=== PATIENT | female | born 1980 | race Two or more races ===

== ENCOUNTER 2021-07-20 19:46 | Emergency (ER) | payer SELFPAY ==
[~2021-07-20] VITALS: Ht 172.7 cm; Wt 111.3 kg
[2021-07-20 20:07] VITALS: BP 133/83
[2021-07-20] MEDS ORDERED: IBUPROFEN 200 MG TABLET. PO ONE (20:30)
[2021-07-20] MEDS ORDERED: IBUPROFEN 400 MG TABLET. PO ONE (20:32)
[2021-07-20] MEDS ORDERED: IBUP-1007 PO (20:34)
--- NOTE | 2021-07-20 20:34 | PHYS DOC ---
Past Medical History Past Surgical History: No Surgical History General Adult EDM: Chief Complaint: PAIN CONTROL HPI: HPI: Patient is a 40-year-old female who presents to the emergency department today for right chronic knee pain. Patient reports that "several years ago" she slid on a dryer sheet and landed on her knee. Patient reports that she has had knee pain ever since and it gets worse when the weather changes. Patient rates her pain 10 out of 10. No treatment prior to arrival. Patient has been able to bear weight and ambulate. She denies any decreased range of motion or decreased sensation to her extremity. Patient states it feels like her knee is trying to pop. Patient reports that she has had previous imaging of her knee that showed no fractures. Review of Systems: Review of Systems: Musculoskeletal: See HPI Integument: See HPI Neurologic: See HPI Heart Score: C/O Chest Pain: N/A Risk Factors: Risk Factors: DM, Current or recent (<one month) smoker, HTN, HLP, family history of CAD, obesity. Risk Scores: Score 0 - 3: 2.5% MACE over next 6 weeks - Discharge Home Score 4 - 6: 20.3% MACE over next 6 weeks - Admit for Clinical Observation Score 7 - 10: 72.7% MACE over next 6 weeks - Early Invasive Strategies Physical Exam: PE: Constitutional: Well developed, well nourished, no acute distress, non-toxic appearance. [] HENT: Normocephalic, atraumatic, bilateral external ears normal, oropharynx moist, no oral exudates, nose normal. [] Eyes: PERRL, EOMI, conjunctiva normal, no discharge. [] Neck: Normal range of motion, no stridor Cardiovascular: Normal peripheral perfusion Lungs & Thorax: Normal work of breathing, no tachypnea Abdomen: Soft and obese Skin: Warm, dry, no erythema, no rash. [] Back: Normal range of motion Extremities: No tenderness, no cyanosis, no clubbing, ROM intact, no edema. [] Right knee: No swelling or obvious deformity, no wounds, no crepitus, neuro intact, range of motion intact, equal strengths to bilateral lower extremities Neurologic: Alert and oriented X 3, normal motor function, normal sensory function, no focal deficits noted. [] Psychologic: Affect normal, judgement normal, mood normal. [] Current Patient Data: Vital Signs: Vital Signs Date Time Temp Pulse Resp B/P (MAP) Pulse Ox O2 Delivery O2 Flow Rate FiO2 07/20/21 20:07 98.0 84 18 133/83 (100) 99 Room Air 98.0 EKG: EKG: [] Radiology/Procedures: Radiology/Procedures: [] Course & Med Decision Making: Course & Med Decision Making Pertinent Labs and Imaging studies reviewed. (See chart for details) [] Patient presents to the emergency department for pain control. Patient is reporting chronic right knee pain that has been going on for several years. Patient reports that she slid on a dryer sheet several years ago and landed onto her knee. Patient reports that she has had imaging of her knee in the past and they were negative for any acute fractures. She denies any new injuries. Patient has not taken anything for her pain today. Patient was treated with ibuprofen in the emergency department. Patient advised to take anti- inflammatory medications and apply ice. I discussed with patient all findings g as well as the need to follow-up with PCP for further evaluation and treatment or return to the ER if any new or worsening symptoms. Strict return precautions were also discussed at length. Patient voiced understanding and agreement with the plan. Patient is hemodynamically stable at the time of disposition. Transporeon Disclaimer: Transporeon Disclaimer: This electronic medical record was generated, in whole or in part, using a voice recognition dictation system. Departure Departure Impression: Primary Impression: Chronic knee pain Qualified Codes: M25.561 - Pain in right knee; G89.29 - Other chronic pain Disposition: HOME / SELF CARE / HOMELESS Condition: GOOD Patient Instructions: Knee Pain Additional Instructions: You were seen in the emergency department today for chronic right knee pain. Please take medications like tylenol, ibuprofen for pain. Also apply ice. Fo llow-up with your primary care provider on Friday regarding your ER visit. See clinic list. Return to the emergency department if you develop any new injuries, inability to walk, decreased range of motion or decreased sensation in your extremity. EMERGENCY DEPARTMENT GENERAL DISCHARGE INSTRUCTIONS Thank you for coming to [facility] Emergency Department (ED) today and trusting us with you care. We trust that you had a positive experience in our Emergency Department. If you wish to speak to the department management, you may call the Director at [phone]. YOUR FOLLOW UP INSTRUCTIONS ARE FOLLOWS: 1. Do you have a private Doctor? If you do not have a private doctor, please ask for a resource list of physicians or clinics that may be able to assist you with follow up care. 2. The Emergency Physicain has interpreted your x-rays. The X-Ray specialist will also review them. If there is a change in the findings, you will be notified in 48 hours when at all possible. 3. A lab test or culture has been done, your results will be reviewed and you will be notified if you need a change in treatment. ADDITIONAL INSTRUCTIONS AND INFORMATION: 1. Your care today has been supervised by a physician who is specially trained in emergency care. Many problems require more than one evaluation for a complete diagnosis and treatment. We recommend that you schedule your follow up appointment as recommended to ensure complete treatment of you illness or injury. If you are unable to obtain follow up care and continue to have a problem, or if your condition worsens, we recommend that you return to the ED. 2. We are not able to safely determine your condition over the phone nor are we able to give sound medical advice over the phone. For these safety reasons, if you call for medical advice we will ask you to come to the ED for further evaluation. 3. If you have any questions regarding these discharge instructions please call the ED at [phone]. SAFETY INFORMATION: In the interest of safety, wellness, and injury prevention; we encourage you to wear your sealbelt, if you smoke; quite smoking, and we encourage family to use a protective helmet for bicycling and other sporting events that present an increased risk for head injury. IF YOUR SYMPTOMS WORSEN OR NEW SYMPTOMS DEVELOP, OR YOU HAVE CONCERNS ABOUT YOUR CONDITION; OR IF YOUR CONDITION WORSENS WHILE YOU ARE WAITING FOR YOUR FOLLOW UP APPOINTMENT; EITHER CONTACT YOUR PRIMARY CARE DOCTOR, THE PHYSICIAN WHOSE NAME AND NUMBER YOU WERE GIVEN, OR RETURN TO THE ED IMMEDIATELY. Scripts Ibuprofen (IBUPROFEN) 600 Mg Tablet 600 MG PO PRN Q6HRS PRN for INFLAMMATION for 5 Days, #20 TAB 0 Refills Prov: MIHAI VALADEZ APRN 07/20/21 MIHAI VALADEZ APRN Jul 20, 2021 20:34
== END 2021-07-20 20:41 | disposition home or self-care (01) ==
LOC: ER 19:46
DX: M25.561 Pain in right knee (principal); G89.29 Other chronic pain
CPT/HCPCS: 99282

== ENCOUNTER 2021-07-28 16:30 | Emergency (ER) | payer SELFPAY ==
[~2021-07-28] VITALS: Ht 172.7 cm; Wt 99.0 kg
[~2021-07-28 16:30] MED LIST: IBUP-1007 PO
[2021-07-28 16:40] VITALS: BP 120/57
--- NOTE | 2021-07-28 16:56 | PHYS DOC ---
Past Medical History Past Surgical History: , Tonsillectomy, Other Additional Past Surgical Histo: RIGHT ANKLE Smoking Status: Former Smoker Alcohol Use: None General Adult EDM: Chief Complaint: KNEE INJURY HPI: HPI: Patient is a 40 year old female patient presented to the ED today complaining of moderate pain to the right knee that began today after she twisted her knee. Patient denies falling. States pain is worse on ambulation. She states she was diagnosed with a Duenas's cyst behind her right knee, she states she would like it drained. Review of Systems: Review of Systems: Constitutional: Denies fever or chills. [] Musculoskeletal: Reports right knee pqin Integument: Denies rash. [] Neurologic: Denies headache, focal weakness or sensory changes. [] Psychiatric: Denies depression or anxiety. [] Heart Score: C/O Chest Pain: N/A Risk Factors: Risk Factors: DM, Current or recent (<one month) smoker, HTN, HLP, family history of CAD, obesity. Risk Scores: Score 0 - 3: 2.5% MACE over next 6 weeks - Discharge Home Score 4 - 6: 20.3% MACE over next 6 weeks - Admit for Clinical Observation Score 7 - 10: 72.7% MACE over next 6 weeks - Early Invasive Strategies Allergies: Allergies: Allergies Coded Allergies Type Severity Reaction Last Updated Verified Penicillins Allergy Intermediate Rash 07/20/21 Yes Physical Exam: PE: Constitutional: Well developed, well nourished, no acute distress, non-toxic appearance. [] Skin: Warm, dry, no erythema, no rash. [] Back: No tenderness, no CVA tenderness. [] Extremities: Overweight patient. Right knee with no obvious deformity. No tenderness on exam. Limited range of motion to the right knee most of it due to her weight. +2 right pedal pulse. Cap refill less than 2 seconds to right lower extremity. Sensation intact to the right lower extremity Neurologic: Alert and oriented X 3, normal motor function, normal sensory function, no focal deficits noted. [] Psychologic: Affect normal, judgement normal, mood normal. [] Current Patient Data: Vital Signs: Vital Signs Date Time Temp Pulse Resp B/P (MAP) Pulse Ox O2 Delivery O2 Flow Rate FiO2 07/28/21 16:40 97.8 74 21 120/57 (78) 97 Room Air 97.8 EKG: EKG: [] Radiology/Procedures: Radiology/Procedures: []PROCEDURE: KNEE RIGHT 3V XR KNEE 3 VIEWS_RT Clinical Indication: Reason: pain twisted knee / Spl. Instructions: / History: Comparison: None. Findings: There is no acute fracture. The patella is in anatomic position. There is no large joint effusion. No soft tissue swelling is seen radiographically. There are marginal osteophytes. There is a tiny patellar enthesophyte. The mineralization is normal. There is mild narrowing of the lateral compartment. IMPRESSION: No acute fracture. Electronically signed by: Link Back MD (07/28/2021 5:15 PM) [facility] DICTATED and SIGNED BY: LINK BACK MD DATE: 07/28/21 [id number] 0 Course & Med Decision Making: Course & Med Decision Making Pertinent Labs and Imaging studies reviewed. (See chart for details) This a 40-year-old female patient presented to the ED today complaining of right knee pain. Right knee x-rays interpreted by radiologist are negative for any acute findings, discharged home. Frandy wrap recommended to the knee. Ice elevation encouraged. Follow-up with orthopedic doctor in 1 week as needed Bess Disclaimer: Bess Disclaimer: This electronic medical record was generated, in whole or in part, using a voice recognition dictation system. Departure Departure Impression: Primary Impression: Right knee pain Qualified Codes: M25.561 - Pain in right knee Disposition: HOME / SELF CARE / HOMELESS Condition: STABLE Referrals: ANGELO HERRON MD follow up in one week Patient Instructions: Knee Pain, [id number] Additional Instructions: You were seen for right knee pain, your right knee x-rays are negative for any acute findings/no fractures. You can wrap the knee with an Frandy bandage as tolerated and needed. Try to ice and elevate the knee. Take the prescribed medications as ordered. Follow-up with orthopedic doctor provided in 1 to 2 weeks. Take over the counter medicines as needed for your pain SHAMEKA VARGAS APRN Jul 28, 2021 16:55
--- NOTE | 2021-07-28 17:18 | RAD ---
XR KNEE 3 VIEWS_RT Clinical Indication: Reason: pain twisted knee / Spl. Instructions: / History: Comparison: None. Findings: There is no acute fracture. The patella is in anatomic position. There is no large joint effusion. No soft tissue swelling is seen radiographically. There are marginal osteophytes. There is a tiny roman lar enthesophyte. The mineralization is normal. There is mild narrowing of the lateral compartment. IMPRESSION: No acute fracture. Electronically signed by: Link Back MD (07/28/2021 5:15 PM) KRISTOFERFIDELIA
== END 2021-07-28 17:28 | disposition home or self-care (01) ==
LOC: ER 16:30
DX: M25.561 Pain in right knee (principal); Z87.891 Personal history of nicotine dependence; Z88.0 Allergy status to penicillin; X50.9XXA Other and unspecified overexertion or strenuous movements or postures, initial encounter; Y93.89 Activity, other specified; Y92.89 Other specified places as the place of occurrence of the external cause; Y99.8 Other external cause status
CPT/HCPCS: 73562; 99283; A6450

== ENCOUNTER 2021-08-03 00:21 | Emergency (ER) | payer SELFPAY ==
[~2021-08-03] VITALS: Ht 172.7 cm; Wt 111.4 kg
[2021-08-03 00:22] VITALS: BP 125/66
--- NOTE | 2021-08-03 00:28 | PHYS DOC ---
Past Medical History Past Medical History: Anxiety Past Medical History Duenas cyst right knee Mood disorder Past Surgical History: , Tonsillectomy, Other Additional Past Surgical Histo: RIGHT ANKLE Smoking Status: Current Every Day Smoker Alcohol Use: Occasionally General Adult EDM: Chief Complaint: LOWER EXT PAIN HPI: HPI: Patient is a 40 year old female who presents via EMS, from home, for multiple complaints. She reports that her significant other woke her up from sleep and told her to help him get an ice pack. The patient significant other frequently uses ice packs for his chronic neck pain. Her significant other arrived via EMS literally moments before this patient arrived. Once EMS showed up for the patient significant other, she decided that she wanted to be seen in the ER as well. She reports that she was standing next to the oven, which was on, in order to heat their home, while making an ice pack for him, and she briefly felt dizzy and felt like she was "overheated." Symptoms resolved rapidly, resolved prior to arrival and continued to be resolved. She alludes to feeling somewhat "weak." She also feels tired because she was awakened from a sleep. She denies chest pain, palpitations, dyspnea, abdominal pain, nausea, vomiting. She denies vertigo, head injury, syncope, headache. She denies fevers or chills. She denies cough, sore throat, anorexia. She denies urinary symptoms. She denies incontinence. She denies motor weakness, numbness or tingling. She almost immediately asks for a cab pass home for herself as well as for her significant other. She reports that she used to be engaged with services in [facility], though she has not seen him in some time. She supposed to be taking multiple psychotropic medications, though she has not been taking them and "a while." Also, she reports having right knee pain, she has had this for over a week. Less than 2 days ago she was seen in the ER at [facility] was diagnosed with a Duenas's cyst. No changes today. No fall, trauma or injury. No numbness or tingling, no limb swelling. No skin redness. She has been taking ibuprofen which has helped. Review of Systems: Review of Systems: Constitutional: Denies fever or chills. [] Eyes: Denies change in visual acuity. [] HENT: Denies nasal congestion or sore throat. [] Respiratory: Denies cough or shortness of breath. [] Cardiovascular: Denies chest pain or edema. [] GI: Denies abdominal pain, nausea, vomiting, or diarrhea : Denies urinary symptoms. Musculoskeletal: Denies back pain or joint pain. [] Integument: Denies rash. [] Neurologic: Denies headache, focal weakness or sensory changes. Reports brief and resolved dizziness symptoms. Denies vertigo. Denies head injury, syncope, numbness, tingling or motor weakness. Endocrine: Denies polyuria or polydipsia. [] Lymphatic: Denies swollen glands. [] Psychiatric: Chronic and unchanged mood disturbance Heart Score: C/O Chest Pain: No Risk Factors: Risk Factors: DM, Current or recent (<one month) smoker, HTN, HLP, family history of CAD, obesity. Risk Scores: Score 0 - 3: 2.5% MACE over next 6 weeks - Discharge Home Score 4 - 6: 20.3% MACE over next 6 weeks - Admit for Clinical Observation Score 7 - 10: 72.7% MACE over next 6 weeks - Early Invasive Strategies Allergies: Allergies: Allergies Coded Allergies Type Severity Reaction Last Updated Verified Penicillins Allergy Intermediate Rash 07/20/21 Yes Physical Exam: PE: Constitutional: Well developed, well nourished, no acute distress, non-toxic appearance. She appears older than stated age. Resting comfortably on the ED gurney HENT: Normocephalic, atraumatic, oropharynx is patent and clear, mucous memories are moist. Very poor dentition, multiple dental caries. No oropharyngeal erythema, exudate or swelling. TMs are clear bilaterally. Nares are clear without rhinorrhea or epistaxis. Eyes: PERRL, EOMI, conjunctiva normal, no discharge. No nystagmus. Sclera are clear and anicteric. Neck: Normal range of motion, no tenderness, supple, no stridor. Midline, no JVD, no meningismus Cardiovascular:Heart rate regular rhythm, +2 radial and +2 posterior tibial pulses bilaterally Lungs & Thorax: Lungs are clear to auscultation bilaterally without rales, rhonchi or wheezes. No evidence of distress. Abdomen: Abdomen is soft, obese, nondistended, nontender to palpation, normal bowel sounds, no palpable pulsatile mass, no CVA tenderness, no flank abdominal ecchymoses Skin: Warm, dry, no erythema, no rash. Gait is somewhat unkempt. No jaundice. No open wounds. Back: No tenderness, no CVA tenderness. [] Extremities: No tenderness, no cyanosis, no clubbing, ROM intact, no edema. No calf tenderness. Negative Homans. No warmth or erythema. Full painless active and passive range of motion of the right knee, ankle and foot and digits of the right foot. No ligamentous laxity noted. No palpable cord. No discoloration of either lower extremity nor either upper extremity Neurologic: She is awake, alert, oriented x3, no facial asymmetry, ambulatory without difficulty, gross motor intact and normal, sensation grossly intact, speech is clear and fluent, gait is steady, no ataxia Psychologic: Affect is bizarre. She is overall cooperative EKG: EKG: EKG is interpreted at 0057 Rhythm is sinus Rate is 59 bpm [place] is normal No STEMI Radiology/Procedures: Radiology/Procedures: [] Course & Med Decision Making: Course & Med Decision Making Pertinent Labs and Imaging studies reviewed. (See chart for details) I discussed the findings, differential diagnosis and plan of care with the patient. EKG is unremarkable for any ischemia or interval changes. Glucose is 105. UA is unremarkable. She is otherwise well-appearing, with stable vital signs. There is no current indication for further invasive exams, imaging or admission based on current clinical presentation. I discussed that she must follow-up with her primary care physician. She is given outpatient resources for this purpose. I told her to please contact [facility] services in order to reengage in care there. Return precautions are given. She is discharged in stable condition. Bess Disclaimer: Bess Disclaimer: This electronic medical record was generated, in whole or in part, using a voice recognition dictation system. Departure Departure Impression: Primary Impression: Dizziness Additional Impressions: Chronic pain of right knee Duenas's cyst of knee Qualified Codes: M71.21 - Synovial cyst of popliteal space [Duenas], right knee Disposition: HOME / SELF CARE / HOMELESS Condition: STABLE Referrals: NO PCP (PCP) Patient Instructions: Duenas's Cyst, Dizziness, [id number] Additional Instructions: Return for an emergency medical condition, such as acute trauma or injury, severe chest pain, shortness of breath, uncontrolled vomiting, severe abdominal pain, temperature 100.4 or higher, if you develop any focal weakness or paralysis, head injury, or other concerns. For pain, you may take [id number] Tylenol or ibuprofen. Follow-up with your primary care physician. Please also contact [facility] to reestablish care there. MARTI COLLINS DO Aug 03, 2021 00:28
[2021-08-03 01:28] LABS: BILIRUBIN,URINE NEGATIVE (NEG); CLARITY,URINE CLEAR; COLOR,URINE YELLOW; NITRITE,URINE NEGATIVE (NEG); PROTEIN,URINE TRACE mg/dL (NEG-TRACE); UROBILINOGEN,URINE 0.2 mg/dL (0.2 mg/dL)
[2021-08-03 01:29] LABS: BACTERIA,URINE FEW /HPF (0-FEW); RBC,URINE RARE /HPF (0-2)
--- NOTE | 2021-08-03 07:32 | EKG ---
[facility] [address] [place] [address] Test Date: 2021-08-03 Test Time: 00:55:07 Pat Name: CRISTIAN ACKERMAN Department: Room: Gender: F Swedger: : 1980 Requested By: MARTI COLLINS Order Number: [id number] Reading MD: Efraín Posey Measurements Intervals [place] Rate: 59 P: 43 [place]: 180 QRS: 46 QRSD: 96 T: 26 QT: 400 QTc: 400 Interpretive Statements SINUS RHYTHM MILD NON SPECIFIC ST CHANGES Electronically Signed On 08-03-2021 16:26:53 [employer] by Efraín Posey
== END 2021-08-03 01:44 | disposition home or self-care (01) ==
LOC: ER 00:21
DX: M71.21 Synovial cyst of popliteal space [Baker], right knee (principal); R42 Dizziness and giddiness; F17.200 Nicotine dependence, unspecified, uncomplicated; F41.9 Anxiety disorder, unspecified
CPT/HCPCS: 81001; 81025; 82962; 87086; 93005; 99284

== ENCOUNTER 2021-08-04 21:12 | Emergency (ER) | payer SELFPAY ==
[~2021-08-04] VITALS: Ht 180.3 cm; Wt 111.4 kg
[2021-08-04 21:12] VITALS: BP 138/78
--- NOTE | 2021-08-04 21:16 | PHYS DOC ---
Past Medical History Past Medical History: Anxiety Past Surgical History: , Tonsillectomy, Other Additional Past Surgical Histo: RIGHT ANKLE Smoking Status: Never Smoker Alcohol Use: None General Adult EDM: Chief Complaint: GENERAL COMPLAINT HPI: HPI: Patient is a 40 year old female who presents from home, via EMS, for report of chronic right knee pain. She has had the same knee pain since she was 27 years old. I saw this patient earlier this week for the same complaint. 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 She denies any changes at all today. She denies joint redness or swelling. She denies fevers or chills but denies any trauma or injury. She denies any calf pain. She also mentions having chronic low back pain, she reports that she feels like her muscles are sore in her low back. This is also unchanged for over a decade. No reported fall, trauma or injury. She denies abdominal pain, urinary symptoms, bowel or bladder incontinence, fevers or chills. No dizziness, numbness, tingling or motor weakness. No syncope. The patient reports that she took ibuprofen shortly prior to arrival but is angry because is not working. She is demanding something "stronger." The patient rode in the same ambulance as her significant other, who accompanies her here today for other chronic issues. The patient is argumentative, relatively hostile to me and the nursing staff. She is presented here similarly multiple times for the same complaints and same type of behavior. Review of Systems: Review of Systems: Constitutional: Denies fever or chills. [] Respiratory: Denies cough or shortness of breath. [] Cardiovascular: Denies chest pain or edema. [] GI: Denies abdominal pain, nausea, vomiting, or diarrhea. Denies stool incontinence. : Denies urinary symptoms, denies urine incontinence Musculoskeletal: Chronic low back pain, unchanged for many years. Chronic right knee pain, unchanged for many years. Integument: Denies rash. [] Neurologic: Denies headache, focal weakness or sensory changes. No dizziness, syncope, fall, head injury. Psychiatric: Anxiety and mood disturbance. Heart Score: C/O Chest Pain: No Risk Factors: Risk Factors: DM, Current or recent (<one month) smoker, HTN, HLP, family history of CAD, obesity. Risk Scores: Score 0 - 3: 2.5% MACE over next 6 weeks - Discharge Home Score 4 - 6: 20.3% MACE over next 6 weeks - Admit for Clinical Observation Score 7 - 10: 72.7% MACE over next 6 weeks - Early Invasive Strategies Allergies: Allergies: Allergies Coded Allergies Type Severity Reaction Last Updated Verified Penicillins Allergy Intermediate Rash 07/20/21 Yes Physical Exam: PE: Constitutional: Well developed, well nourished, no acute distress, non-toxic appearance. She is relatively disheveled, appears older than stated age. She is not ill-appearing. HENT: Normocephalic, atraumatic Neck: Trachea midline Cardiovascular:Heart rate regular rhythm, +2 radial and +2 posterior tibial pulses bilateral Lungs & Thorax: Bilateral breath sounds clear to auscultation, no rales, rhonchi or wheezes. Equal chest rise. No evidence of thorax or chest wall trauma. Abdomen: Abdomen is obese, soft, nondistended, nontender to palpation. No abdominal or flank ecchymoses. No CVA tenderness. Skin: Warm, dry, no erythema, no rash. [] Back: No tenderness, no CVA tenderness. No midline tenderness or step-offs. No deformity. Full range of motion. Extremities: No limb deformity. Bilateral lower extremities are obese, no pitting edema. Pelvis is stable. Palpation of the anterior knee reproduces tenderness. No calf tenderness noted. No pathologic edema noted. No palpable cord. No warmth or erythema. No ligamentous laxity. Negative anterior posterior drawer testing. No palpable crepitus or step-offs. Neurologic: She is awake, alert, oriented x3, no facial asymmetry, gait is steady and nonantalgic, no gait ataxia, normal gross motor function, normal jennifer ss sensation, speech is clear and fluent. Psychologic: Affect is bizarre, somewhat argumentative and hostile. EKG: EKG: [] Radiology/Procedures: Radiology/Procedures: [] Course & Med Decision Making: Course & Med Decision Making The patient has chronic knee pain, admittedly unchanged from baseline. No reported trauma or injury. She clinically has a benign exam. No red flag signs or symptoms regarding her back pain. I told the patient that I could offer her Tylenol here for pain. She was ordered a dose of 1000 mg of Tylenol. She is angry that she is not being given opioids or something stronger for her pain. I explained that I would not prescribe opioids or controlled substances for chronic pain, as this is not appropriate. She has already been given multiple outpatient resources to establish primary care. She reports that she still has all of these resources at home. I encouraged her to call them on Friday. No emergent imaging or invasive exams are clinically appropriate at this time based on current clinical presentation. Return precautions are given. The patient and her significant other were discharged rather quickly. The patient and her significant other were hostile and argumentative on their way out of the ED. They left the emergency department, walked into the parking lot, called EMS dispatch/911 and told him that we refused to treat them. This is not true. The nursing staff and I spoke with the market analysis director and inform them that the patient and her significant other both had appropriate medical screening exams in the emergency department care was appropriate further particular complaint. The patient and her significant other reportedly then walked off the property, called 9 and debated to be taken to another hospital. Bess Disclaimer: Bess Disclaimer: This electronic medical record was generated, in whole or in part, using a voice recognition dictation system. Departure Departure Impression: Primary Impression: Chronic pain of right knee Additional Impression: Chronic back pain Qualified Codes: M54.9 - Dorsalgia, unspecified; G89.29 - Other chronic pain Disposition: 01 HOME / SELF CARE / HOMELESS Condition: STABLE Referrals: NO PCP (PCP) Patient Instructions: Arthritis, Nonspecific, Back Pain, Adult Additional Instructions: Return to the ER for any acute emergency medical condition, if you experience any acute trauma or injury, if you have a temperature 100.4 or higher, difficulty with urination, incontinence, motor weakness or paralysis or other concerns. Please contact the primary care resources you are given a few days ago. MARTI COLLINS DO Aug 04, 2021 21:16
[2021-08-04] MEDS ORDERED: ACETAMINOPHEN 500 MG TABLET PO ONE (22:00)
== END 2021-08-04 21:38 | disposition home or self-care (01) ==
LOC: ER 21:12
DX: G89.29 Other chronic pain (principal); M25.561 Pain in right knee; M54.50 Low back pain, unspecified; Z88.0 Allergy status to penicillin
CPT/HCPCS: 99283

== ENCOUNTER 2021-09-17 19:41 | Emergency (ER) | payer SELFPAY ==
[~2021-09-17] VITALS: Ht 172.7 cm; Wt 111.3 kg
[2021-09-17 22:00] VITALS: BP 137/85
--- NOTE | 2021-09-17 22:54 | RAD ---
XR KNEE 4 VIEWS WITH PATELLA_RT Clinical Indication: Reason: pain twisted knee walking / Spl. Instructions: / History: Comparison: None. Findings: No patellar tilt or subluxation is seen on the sunrise view. The patella is in anatomic position on t he lateral view. There is a tiny patellar enthesophyte. There are small tricompartmental marginal ost eophytes. There is lateral compartment narrowing of the knee. No knee joint effusion is identified. N o soft tissue swelling. No acute fracture. IMPRESSION: 1. No acute fracture. 2. No joint effusion. 3. There is mild arthropathy most advanced in the lateral compartment. Electronically signed by: Link Back MD (09/17/2021 10:51 PM) EDELM[facility]
[2021-09-18] MEDS ORDERED: MELO7.5T5 PO (00:16)
--- NOTE | 2021-09-18 00:16 | PHYS DOC ---
Past Medical History Past Medical History: Anxiety Past Surgical History: , Tonsillectomy, Other Additional Past Surgical Histo: RIGHT ANKLE Smoking Status: Never Smoker Alcohol Use: None General Adult EDM: Chief Complaint: KNEE INJURY HPI: HPI: Patient is a 40 year old female with history of anxiety presenting to the ED today complaining of 10 out of 10 right knee pain that began on Friday after she twisted her knee while walking. Patient denies falling. Describes the pain as sharp and intermittent worse on walking. Denies anything relieving the pain Review of Systems: Review of Systems: Constitutional: Denies fever or chills. [] Musculoskeletal: Reports right knee pain Integument: Denies rash. [] Neurologic: Denies headache, focal weakness or sensory changes. [] Psychiatric: Denies depression or anxiety. [] Heart Score: C/O Chest Pain: N/A Risk Factors: Risk Factors: DM, Current or recent (<one month) smoker, HTN, HLP, family history of CAD, obesity. Risk Scores: Score 0 - 3: 2.5% MACE over next 6 weeks - Discharge Home Score 4 - 6: 20.3% MACE over next 6 weeks - Admit for Clinical Observation Score 7 - 10: 72.7% MACE over next 6 weeks - Early Invasive Strategies Allergies: Allergies: Allergies Coded Allergies Type Severity Reaction Last Updated Verified Penicillins Allergy Intermediate Rash 07/20/21 Yes Physical Exam: PE: Constitutional: Well developed, well nourished, no acute distress, non-toxic appearance. [] Skin: Warm, dry, no erythema, no rash. [] Back: No tenderness, no CVA tenderness. [] Extremities: Overweight patient, right knee with no obvious deformity, no obvious edema or ecchymosis. Diffuse tenderness to the right knee on exam. Full range of motion to the right knee the exam is difficult due to her weight. +2 pedal right pedal pulse. Cap refill less than 2 seconds to right knee. Neurologic: Alert and oriented X 3, normal motor function, normal sensory function, no focal deficits noted. [] Psychologic: Affect normal, judgement normal, mood normal. [] Current Patient Data: Labs: Laboratory Tests Test 09/17/21 21:53 POC Urine HCG, Qualitative Hcg negative (Negative) Vital Signs: Vital Signs Date Time Temp Pulse Resp B/P (MAP) Pulse Ox O2 Delivery O2 Flow Rate FiO2 09/17/21 22:00 98.7 110 17 137/85 (102) 99 Room Air 98.7 EKG: EKG: [] Radiology/Procedures: Radiology/Procedures: []PROCEDURE: KNEE RIGHT 4V XR KNEE 4 VIEWS WITH PATELLA_RT Clinical Indication: Reason: pain twisted knee walking / Spl. Instructions: / History: Comparison: None. Findings: No patellar tilt or subluxation is seen on the sunrise view. The patella is in anatomic position on the lateral view. There is a tiny patellar enthesophyte. There are small tricompartmental marginal osteophytes. There is lateral c ompartment narrowing of the knee. No knee joint effusion is identified. No soft tissue swelling. No acute fracture. IMPRESSION: 1. No acute fracture. 2. No joint effusion. 3. There is mild arthropathy most advanced in the lateral compartment. Electronically signed by: Link Tripp MD (09/17/2021 10:51 PM) [facility] DICTATED and SIGNED BY: LINK TRIPP MD DATE: 09/17/212248 Course & Med Decision Making: Course & Med Decision Making Pertinent Labs and Imaging studies reviewed. (See chart for details) This a 40-year-old female patient presenting to the ED today with right knee pain that began on Friday after she twisted her knee while walking. Patient is overweight, right knee x-rays are negative for any acute findings. Noted for DJD of the right knee. Frandy wrap applied to the right knee by the ED RN, neurovascular exam done by the RN is normal, patient's weight limits immobilizer application hence not applicable. Ice elevation encouraged. Follow-up with Ortho in 1 week Bess Disclaimer: Bess Disclaimer: This electronic medical record was generated, in whole or in part, using a voice recognition dictation system. Departure Departure Impression: Primary Impression: Right knee pain Qualified Codes: M25.561 - Pain in right knee Disposition: HOME / SELF CARE / HOMELESS Condition: STABLE Referrals: NO PCP (PCP) DAVID GALINDO Jr. DO follow up in one week Patient Instructions: Knee Pain, [id number] Additional Instructions: You were evaluated in the emergency room for right knee pain, your right knee x- rays were negative for any acute findings, you were noted to have arthritis in your right knee. We highly encourage you to ice and elevate the extremity. Take the prescribed medications as needed for pain. Wear the Frandy wrap provided of tolerated. Follow-up with the provided orthopedic doctor in 1 week Scripts Meloxicam (MOBIC) 7.5 Mg Tablet 1 TAB PO DAILY, #20 TAB 1 Refill Prov: SHAMEKA VARGAS APRN 09/18/21 SHAMEKA VARGAS APRN Sep 18, 2021 00:16
== END 2021-09-18 00:22 | disposition home or self-care (01) ==
LOC: ER 19:41
DX: M25.561 Pain in right knee (principal); Z88.0 Allergy status to penicillin; X50.9XXA Other and unspecified overexertion or strenuous movements or postures, initial encounter; Y93.01 Activity, walking, marching and hiking; Y92.89 Other specified places as the place of occurrence of the external cause; Y99.8 Other external cause status
CPT/HCPCS: 73564; 81025; 99283

== ENCOUNTER 2021-09-26 19:48 | Emergency (ER) | payer SELFPAY ==
[~2021-09-26] VITALS: Ht 172.7 cm; Wt 111.4 kg
[~2021-09-26 19:48] MED LIST changes: +MELO7.5T5 PO
[2021-09-26 20:55] VITALS: BP 125/71
--- NOTE | 2021-09-26 22:27 | PHYS DOC ---
Past Medical History Past Medical History: Anxiety Past Surgical History: , Tonsillectomy, Other Additional Past Surgical Histo: RIGHT ANKLE Smoking Status: Never Smoker Alcohol Use: None General Adult EDM: Chief Complaint: KNEE INJURY HPI: HPI: Patient is a 40 year old female with history of anxiety presenting to the ED today complaining of mild intermittent right lateral knee pain, symptoms are chronic. Patient denies any injuries. Patient was seen in the ED on 09/17/2021 with the same complaint, she had negative x-rays, she states she was seen at [facility] yesterday with the same complaint and they wrapped the knee with an Frandy bandage and sent her home. Patient states the pain is worse on ambulation as well as touching the knee. Denies anything relieving the pain. She states she wants another x-ray. She is in the ED with the , they are both homeless. He is being evaluated as well. Review of Systems: Review of Systems: Constitutional: Denies fever or chills. [] Musculoskeletal: Reports chronic right knee pain Integument: Denies rash. [] Neurologic: Denies headache, focal weakness or sensory changes. [] Endocrine: Denies polyuria or polydipsia. [] Lymphatic: Denies swollen glands. [] Psychiatric: Denies depression or anxiety. [] Heart Score: C/O Chest Pain: N/A Risk Factors: Risk Factors: DM, Current or recent (<one month) smoker, HTN, HLP, family history of CAD, obesity. Risk Scores: Score 0 - 3: 2.5% MACE over next 6 weeks - Discharge Home Score 4 - 6: 20.3% MACE over next 6 weeks - Admit for Clinical Observation Score 7 - 10: 72.7% MACE over next 6 weeks - Early Invasive Strategies Allergies: Allergies: Allergies Coded Allergies Type Severity Reaction Last Updated Verified Penicillins Allergy Intermediate Rash 07/20/21 Yes Physical Exam: PE: Constitutional: Well developed, well nourished, no acute distress, non-toxic appearance. [] Skin: Warm, dry, no erythema, no rash. [] Back: No tenderness, no CVA tenderness. [] Extremities: Overweight patient, right knee with no obvious deformity, no edema, no ecchymosis, tenderness on palpation of the right lateral knee, full passive range of motion to the right knee. +2 right pedal pulse. Cap refill less than 2 seconds of right lower extremity Neurologic: Alert and oriented X 3, normal motor function, normal sensory function, no focal deficits noted. [] Psychologic: Affect normal, judgement normal, mood normal. [] Current Patient Data: Vital Signs: Vital Signs Date Time Temp Pulse Resp B/P (MAP) Pulse Ox O2 Delivery O2 Flow Rate FiO2 09/26/21 20:55 98.3 98 14 125/71 (89) 98 Room Air 98.3 EKG: EKG: [] Radiology/Procedures: Radiology/Procedures: []PROCEDURE: KNEE RIGHT 3V XR KNEE 3 VIEWS_RT DATE: 09/26/2021 9:30 PM INDICATION: pain COMPARISON: 09/17/2021. FINDINGS: Bones: There is no evidence of acute fracture or dislocation. Joints: Mild to moderate lateral compartment degenerative changes, mild medial and patellofemoral compartment degenerative changes. There is no joint effusion. Miscellaneous: None. IMPRESSION: No acute osseous abnormality. Electronically signed by: Saurabh Demarco MD (09/26/2021 10:28 PM) [facility] DICTATED and SIGNED BY: SAURABH DEMARCO MD DATE: 09/26/212226 Course & Med Decision Making: Course & Med Decision Making Pertinent Labs and Imaging studies reviewed. (See chart for details) This a 40-year-old female patient presenting to the ED today with chronic right knee pain and requesting x-rays of the right knee. She was seen in the ED on 09/17/2021 for the same complaint and had negative x-rays. She went to yesterday and was seen for the same complaint. Right knee x-rays are negative for any acute findings. Discharge to home, provided Ortho for follow-up. Dragon Disclaimer: Dragon Disclaimer: This electronic medical record was generated, in whole or in part, using a voice recognition dictation system. Departure Departure Impression: Primary Impression: Chronic pain of right knee Additional Impression: Homeless Disposition: 01 HOME / SELF CARE / HOMELESS Condition: STABLE Referrals: NO PCP (PCP) JESUS MANUEL STARK II, MD follow up in one week Patient Instructions: Knee Pain, [id number] Additional Instructions: You were seen for right knee pain, your right knee x-rays are negative for any acute findings. Please follow-up with your primary care doctor as well as the provided orthopedic doctor in 1 week SHAMEKA VARGAS APRN Sep 26, 2021 22:27
--- NOTE | 2021-09-26 22:30 | RAD ---
XR KNEE 3 VIEWS_RT DATE: 09/26/2021 9:30 PM INDICATION: pain COMPARISON: 09/17/2021. FINDINGS: Bones: There is no evidence of acute fracture or dislocation. Joints: Mild to moderate lateral compartment degenerative changes, mild medial and patellofemoral co mpartment degenerative changes. There is no joint effusion. Miscellaneous: None. IMPRESSION: No acute osseous abnormality. Electronically signed by: Jesse Jean MD (09/26/2021 10:28 PM) [facility]
== END 2021-09-26 23:00 | disposition home or self-care (01) ==
LOC: ER 19:48
DX: G89.29 Other chronic pain (principal); M25.561 Pain in right knee; F41.9 Anxiety disorder, unspecified; Z59.00 Homelessness unspecified; Z88.0 Allergy status to penicillin
CPT/HCPCS: 73562; 99283

== ENCOUNTER 2021-10-27 15:05 | Emergency (ER) | payer MEDICAID ==
[~2021-10-27] VITALS: Ht 172.7 cm; Wt 108.3 kg
[2021-10-27] MEDS ORDERED: CETIRIZINE HCL 10 MG TABLET. PO ONE (15:30)
[2021-10-27] MEDS ORDERED: IPRATRPIUM/ALBUTEROL 0.5/2.5MG 3 ML NEBU. NEB ONE (15:30)
[2021-10-27] MEDS ORDERED: methylPREDNISolone SOD SUCC PF 125 MG/2 ML VIAL. IV ONE (15:30)
--- NOTE | 2021-10-27 15:34 | PHYS DOC ---
Past Medical History Past Medical History: Anxiety Additional Past Medical Histor: CHRONIC KNEE PAIN Past Surgical History: , Tonsillectomy, Other Additional Past Surgical Histo: RIGHT ANKLE Smoking Status: Never Smoker Alcohol Use: None General Adult EDM: Chief Complaint: SHORTNESS OF BREATH HPI: HPI: Patient is a 40 year old female who presents with last 2 weeks of intermittent shortness of air, intermittent wheezing, intermittent nasal congestion. She is homeless. She is here with her homeless boyfriend. She states a week and a half ago she went to and they gave her breathing treatment and sent her on her way. She states she supposed to be taking Wellbutrin. She is a smoker and has never been diagnosed with COPD but states whenever the weather changes she starts having some wheezing and asthma type symptoms with nasal congestion. Denies chest pain, dizziness, headache, fever, chills, body aches, falls, abdominal pain, nausea, vomiting, diarrhea, syncope, numbness or tingling, focal weakness, urinary symptoms. She states that she takes ibuprofen for her chronic right knee pain that she rates a 6 out of 10. Review of Systems: Review of Systems: Constitutional: Denies fever or chills. [] Eyes: Denies change in visual acuity. [] HENT: + nasal congestion or denies sore throat. [] Respiratory: +cough or +shortness of breath. [] Cardiovascular: Denies chest pain or edema. [] GI: Denies abdominal pain, nausea, vomiting, bloody stools or diarrhea. [] : Denies dysuria. [] Musculoskeletal: Denies back pain or joint pain. [] Integument: Denies rash. [] Neurologic: Denies headache, focal weakness or sensory changes. [] Endocrine: Denies polyuria or polydipsia. [] Lymphatic: Denies swollen glands. [] Psychiatric: Denies depression or anxiety. [] Heart Score: C/O Chest Pain: No HEART Score for Chest Pain: HEART Score for Chest Pain Response (Comments) Value History Slighlty/Non-Suspicious 0 ECG Normal 0 Age < 45 0 Risk Factors 1 or 2 Risk Factors 1 Troponin < Normal Limit 0 Total 1 Risk Factors: Risk Factors: DM, Current or recent (<one month) smoker, HTN, HLP, family history of CAD, obesity. Risk Scores: Score 0 - 3: 2.5% MACE over next 6 weeks - Discharge Home Score 4 - 6: 20.3% MACE over next 6 weeks - Admit for Clinical Observation Score 7 - 10: 72.7% MACE over next 6 weeks - Early Invasive Strategies Current Medications: Current Medications Medications (Trade) Dose Ordered Sig/Swetha Start Time Stop Time Status Last Admin Dose Admin Albuterol/ Ipratropium (Duoneb) 3 ml 1X ONCE 10/27/21 15:30 10/27/21 15:31 UNV Methylprednisolone Sodium Succinate (SOLU-Medrol 125MG VIAL) 125 mg 1X ONCE 10/27/21 15:30 10/27/21 15:31 UNV Allergies: Allergies: Allergies Coded Allergies Type Severity Reaction Last Updated Verified Penicillins Allergy Intermediate Rash 07/20/21 Yes Physical Exam: PE: Constitutional: Well developed, well nourished, no acute distress, non-toxic appearance. [] HENT: Normocephalic, atraumatic, bilateral external ears normal, oropharynx moist, no oral exudates, nose normal. [] Eyes: PERRLA, EOMI, conjunctiva normal, no discharge. [] Neck: Normal range of motion, no tenderness, supple, no stridor. [] Cardiovascular:Heart rate regular rhythm, no murmur [] Lungs & Thorax: Bilateral upper breath sounds clear lower diminished to auscultation [] Abdomen: Bowel sounds normal, soft, no tenderness, no masses, no pulsatile masses. [] Skin: Warm, dry, no erythema, no rash. [] Back: No tenderness, no CVA tenderness. [] Extremities: No tenderness, no cyanosis, no clubbing, ROM intact, no edema. [] Neurologic: Alert and oriented X 3, normal motor function, normal sensory function, no focal deficits noted. [] Psychologic: Affect normal, judgement normal, mood normal. [] EKG: EK and read by Dr. Roth as sinus rhythm and no STEMI Radiology/Procedures: Radiology/Procedures: [] Impression: [facility] [address] [place] [address] IMAGING REPORT Signed PATIENT: CRISTIAN ACKERMAN ACCOUNT: [id number] : 1980 LOCATION: ER AGE: 40 SEX: F EXAM STATUS: REG ER ORD. PHYSICIAN: SMITHA MULTANI APRN REASON: SOA PROCEDURE: PORTABLE CHEST 1V Exam Date: 10/27/2021 3:45 PM XR CHEST 1V Indication: Reason: SOA / Spl. Instructions: / History: . FINDINGS/ IMPRESSION: The cardiac silhouette and pulmonary vasculature are within normal limits. There is no focal consolidation, pleural effusion or pneumothorax. The visualized osseous structures are intact. Electronically signed by: Arcelia Hernandez MD (10/27/2021 4:11 PM) [id number] DICTATED and SIGNED BY: ARCELIA HERNANDEZ MD DATE: 10/27/21 1608 Course & Med Decision Making: Course & Med Decision Making Pertinent Labs and Imaging studies reviewed. (See chart for details) See HPI. Alert and oriented x4. Ambulatory steady gait. Skin pink warm and dry. Homeless. Lungs are clear in upper lobes and diminished in lower lobes. Speaks in full clear sentences. No rashes. Vital signs are within normal limits. She is afebrile. Nonseptic appearing. Walks with a walker with a steady gait. Chest x-ray shows no acute findings. Blood work unremarkable. Urinalysis is likely contaminated but I will give her Rocephin in the ED. She will be sent home on Keflex, ProAir inhaler and Medrol Dosepak. No hypoxia. She is eating in the room. Patient is stable and in no distress. [] Dragon Disclaimer: Dragrakel Disclaimer: This electronic medical record was generated, in whole or in part, using a voice recognition dictation system. Departure Departure Impression: Primary Impression: Shortness of breath Additional Impression: UTI (urinary tract infection) Qualified Codes: N39.0 - Urinary tract infection, site not specified; R31.9 - Hematuria, unspecified Disposition: 01 HOME / SELF CARE / HOMELESS Condition: STABLE Referrals: NO PCP (PCP) Patient Instructions: Chronic Obstructive Pulmonary Disease Exacerbation, Urinary Tract Infection Additional Instructions: Follow-up with a primary care provider. Take medications as prescribed and with food. Drink plenty of fluids. If you begin having severe shortness of breath and chest pain thus when you should return to the emergency room. Scripts Nitrofurantoin Monohyd/M-Cryst (MACROBID 100 MG CAPSULE) 100 Mg Capsule 1 CAP PO BID for 7 Days, #14 CAP 0 Refills Prov: SMITHA MULTANI CHIEF SECURITY OFFICER 10/27/21 Albuterol Sulfate (PROAIR HFA INHALER) 8.5 Gm Hfa.aer.ad 2 PUFF IH PRN Q4-6HRS PRN for wheezing for 21 Days, #1 INHALER 0 Refills Prov: SMITHA MULTANI APRN 10/27/21 Methylprednisolone (MEDROL) 4 Mg Tab.ds.pk 1 PKG PO UD, #1 PKG Prov: SMITHA MULTANI CHIEF SECURITY OFFICER 10/27/21 SMITHA MULTANI CHIEF SECURITY OFFICER October 27, 2021 15:34
--- NOTE | 2021-10-27 16:14 | RAD ---
Exam Date: 10/27/2021 3:45 PM XR CHEST 1V Indication: Reason: SOA / Spl. Instructions: / History: . FINDINGS/ IMPRESSION: The cardiac silhouette and pulmonary vasculature are within normal limits. There is no focal consolidation, pleural effusion or pneumothorax. The visualized osseous structures are intact. Electronically signed by: Erlin Hernandez MD (10/27/2021 4:11 PM) [id number]
[2021-10-27 16:29] LABS: BASO % 0 % (0-3); EOS # 0.1 x10^3/uL (0.0-0.7); EOS % 1 % (0-3); HEMOGLOBIN 13.2 g/dL (12.0-15.5); LYMPH # 3.7 x10^3/uL (1.0-4.8); LYMPH % 52 % (24-48); MEAN CORPUSCULAR HEMOGLOBIN 28 pg (25-35); MEAN CORPUSCULAR HGB CONC 32 g/dL (31-37); MEAN CORPUSCULAR VOLUME 87 fL (79-100); MONO # 0.5 x10^3/uL (0.0-1.1); MONO % 7 % (0-9); NEUT # 2.8 x10^3/uL (1.8-7.7); NEUT % 40 % (31-73); PLATELET COUNT 188 x10^3/uL (140-400); RED CELL DISTRIBUTION WIDTH 14.8 % (11.5-14.5); WHITE BLOOD COUNT 7.2 x10^3/uL (4.0-11.0)
[2021-10-27 16:33] LABS: INFLUENZA A PATIENT NEGATIVE (NEGATIVE); INFLUENZA B PATIENT NEGATIVE (NEGATIVE)
[2021-10-27 16:43] LABS: CALCIUM 8.7 mg/dL (8.5-10.1); CREATININE 0.7 mg/dL (0.6-1.0); GFR 93.6; POTASSIUM 4.1 mmol/L (3.5-5.1)
[2021-10-27 16:49] LABS: ALBUMIN 3.6 g/dL (3.4-5.0); ALBUMIN/GLOBULIN RATIO 0.9 (1.0-1.7); TOTAL BILIRUBIN 0.3 mg/dL (0.2-1.0); TOTAL PROTEIN 7.7 g/dL (6.4-8.2)
[2021-10-27 18:07] LABS: BACTERIA,URINE MANY /HPF (0-FEW); RBC,URINE TNTC /HPF (0-2); WBC,URINE TNTC /HPF (0-4)
[2021-10-27 18:19] VITALS: BP 115/67
[2021-10-27] MEDS ORDERED: ALBU2.5V8 IH (18:21)
[2021-10-27] MEDS ORDERED: METH4TAB2 PO (18:21)
[2021-10-27] MEDS ORDERED: NITR100C62 PO (18:21)
[2021-10-27] MEDS ORDERED: cefTRIAXone IV Push 1 GM VIAL. IVP ONE (18:30)
--- NOTE | 2021-10-28 01:23 | EKG ---
[facility] [address] [place] [address] Test Date: 2021-10-27 Test Time: 15:21:17 Pat Name: CRISTIAN ACKERMAN Department: Room: Gender: F [employer]: : 1980 Requested By: SMITHA MULTANI Order Number: [id number] Reading MD: Efraín Posey Measurements Intervals Cascade Rate: 66 P: 39 FL: 186 QRS: 46 QRSD: 72 T: 9 QT: 384 QTc: 404 Interpretive Statements SINUS RHYTHM NON SPECIFIC ST-T WAVE CHANGES Electronically Signed On 10-29-2021 11:08:47 CDT by Efraín Posey
== END 2021-10-27 18:38 | disposition home or self-care (01) ==
LOC: ER 15:05
DX: N39.0 Urinary tract infection, site not specified (principal); R31.9 Hematuria, unspecified; R06.02 Shortness of breath; Z59.00 Homelessness unspecified; Z20.822 Contact with and (suspected) exposure to COVID-19
CPT/HCPCS: 36415; 71045; 80053; 81001; 81025; 83880; 84484; 85025; 87077; 87086; 87186; 87428; 93005; 94640; 96374; 96375; 99285; J0696; J2930

== ENCOUNTER 2021-10-29 19:43 | Emergency (ER) | payer MEDICAID, OTHER ==
[~2021-10-29] VITALS: Ht 172.7 cm; Wt 110.0 kg
[~2021-10-29 19:43] MED LIST changes: +ALBU2.5V8 IH; +METH4TAB2 PO; +NITR100C62 PO
[2021-10-29] MEDS ORDERED: LIDOCAINE (700MG/PATCH) PATCH. TD ONE (20:45)
[2021-10-29] MEDS ORDERED: KETOROLAC 30 MG/ML VIAL. IM ONE (20:45)
[2021-10-29] MEDS ORDERED: ORPHENADRINE CITRATE 60 MG/2 ML VIAL. IM ONE (20:45)
--- NOTE | 2021-10-29 20:55 | PHYS DOC ---
Past Medical History Past Medical History: Anxiety Additional Past Medical Histor: CHRONIC KNEE PAIN Past Surgical History: , Tonsillectomy, Other Additional Past Surgical Histo: RIGHT ANKLE,ADENOIDECTOMY Smoking Status: Current Every Day Smoker Alcohol Use: None General Adult EDM: Chief Complaint: HIP PAIN HPI: HPI: Patient is a 40 year old female with history of sciatica who presents with low back pain after sleeping on concrete for several weeks. Patient is homeless and has had nowhere else to sleep. She has taken ibuprofen without symptom relief. Patient denies injury/trauma, bowel or bladder incontinence. Review of Systems: Review of Systems: ROS negative or noncontributory except as mentioned in HPI. Heart Score: C/O Chest Pain: No Current Medications: Current Medications Medications (Trade) Dose Ordered Sig/Swetha Start Time Stop Time Status Last Admin Dose Admin Ketorolac Tromethamine (Toradol 30mg Vial) 30 mg 1X ONCE 10/29/21 20:45 10/29/21 20:46 DC 10/29/21 20:40 30 MG Lidocaine (Lidoderm) 1 patch 1X ONCE 10/29/21 20:45 10/29/21 20:46 DC 10/29/21 20:40 1 PATCH Orphenadrine Citrate (Norflex) 60 mg 1X ONCE 10/29/21 20:45 10/29/21 20:46 DC 10/29/21 20:41 60 MG Allergies: Allergies: Allergies Coded Allergies Type Severity Reaction Last Updated Verified Penicillins Allergy Intermediate Rash 07/20/21 Yes Physical Exam: PE: Constitutional: Disheveled and malodorous, no acute distress, non-toxic appearance. HENT: Normocephalic, atraumatic. Eyes: EOMI, conjunctiva normal, no discharge. Neck: Normal range of motion, no stridor. Skin: Warm, dry, no erythema, no rash. Back: No midline tenderness, no CVA tenderness. Extremities: No cyanosis, no clubbing, no edema. Neurologic: Normal motor function, normal sensory function, no focal deficits noted. Current Patient Data: Vital Signs: Vital Signs Date Time Temp Pulse Resp B/P (MAP) Pulse Ox O2 Delivery O2 Flow Rate FiO2 10/29/21 19:51 98.0 74 18 154/74 (100) 98 Room Air 98.0 Course & Med Decision Making: Course & Med Decision Making Pertinent Labs and Imaging studies reviewed. (See chart for details) After medication administration, patient is resting comfortably. Patient was woken up and given care instructions as well as return precautions. She understands and is agreeable to discharge plan. Bess Disclaimer: Bess Disclaimer: This electronic medical record was generated, in whole or in part, using a voice recognition dictation system. Departure Departure Impression: Primary Impression: Acute exacerbation of chronic low back pain Disposition: HOME / SELF CARE / HOMELESS Condition: IMPROVED Referrals: NO PCP (PCP) Patient Instructions: Back Exercises, [id number], Back Pain, Adult, [id number] Additional Instructions: EMERGENCY DEPARTMENT GENERAL DISCHARGE INSTRUCTIONS Thank you for coming to [facility] Emergency Department (ED) today and trusting us with you care. We trust that you had a positive experience in our Emergency Department. If you wish to speak to the department management, you may call the director at . YOUR FOLLOW UP INSTRUCTIONS ARE FOLLOWS: 1. Follow up with your primary care doctor. If you do not have a primary doctor, please ask for a resource list of physicians or clinics that may be able to assist you with follow up care. 2. The emergency provider has interpreted your imaging studies, if any were ordered. The radiology automated logistics specialist also reviewed them. If there is a change in the findings, you will be notified in 48 hours when at all possible. 3. If a lab test or culture has been done, your results will be reviewed and you will be notified if you need a change in treatment. 4. Follow instructions verbalized to you and refer to the printouts if needed. ADDITIONAL INSTRUCTIONS AND INFORMATION: 1. Your care today has been supervised by a physician who is specially trained in emergency care. Many problems require more than one evaluation for a complete diagnosis and treatment. We recommend that you schedule your follow up appointment as recommended to ensure complete treatment of you illness or injury. If you are unable to obtain follow up care and continue to have a problem, or if your condition worsens, we recommend that you return to the ED. 2. We are not able to safely determine your condition over the phone nor are we able to give sound medical advice over the phone. For these safety reasons, if you call for medical advice we will ask you to come to the ED for further evaluation. 3. If you have any questions regarding these discharge instructions please call the ED at . SAFETY INFORMATION: In the interest of safety, wellness, and injury prevention; we encourage you to wear your seat belt, if you smoke; quite smoking, and we encourage family to use a protective helmet for bicycling and other sporting events that present an increased risk for head injury. IF YOUR SYMPTOMS WORSEN OR NEW SYMPTOMS DEVELOP, OR YOU HAVE CONCERNS ABOUT YOUR CONDITION; OR IF YOUR CONDITION WORSENS WHILE YOU ARE WAITING FOR YOUR FOLLOW UP APPOINTMENT; EITHER CONTACT YOUR PRIMARY CARE DOCTOR, THE PHYSICIAN WHOSE NAME AND NUMBER YOU WERE GIVEN, OR RETURN TO THE ED IMMEDIATELY. MURALI GEIGER October 29, 2021 20:55
== END 2021-10-29 21:00 | disposition home or self-care (01) ==
LOC: ER 19:43
DX: M54.50 Low back pain, unspecified (principal); G89.29 Other chronic pain; F17.200 Nicotine dependence, unspecified, uncomplicated; Z59.00 Homelessness unspecified
CPT/HCPCS: 96372; 99284; J1885; J2360